=== PATIENT | female | born 1965 | race Caucasian/White ===

== ENCOUNTER 2023-12-17 17:24 | Emergency (ER) | payer OTHER, SELFPAY ==
[2023-12-17 17:27] VITALS: BP 162/90
[2023-12-17 18:05] LABS: % Basophils 0.3 % (0-2); % Eosinophils 1.4 % (0-6); % Immature Granulocytes 0.1 % (0-0.5); % Lymphocytes 38.7 % (20.5-51.1); % Monocytes 7.2 % (1.7-9.3); % Neutrophils 52.3 % (42.2-75.2); Absolute Eosinophils 0.1 10^3/uL (0-0.7); Absolute Lymphocytes 2.7 10^3/uL (1.2-3.4); Absolute Monocytes 0.5 10^3/uL (0.1-0.6); Absolute Neutrophils 3.6 10^3/uL (1.4-6.5); Hematocrit 33.9 % (37.0-47.0); Hemoglobin 11.4 g/dL (12.0-16.0); Mean Corp Hgb Conc. 33.6 g/dL (33.0-37.0); Mean Corpuscular Hgb 31.4 pg (27.0-31.0); Mean Corpuscular Volume 93.4 fL (81.0-99.0); Mean Platelet Volume 8.9 fL (7.4-10.4); Nucleated Red Blood Cells % 0 %; Platelet Count 413 10^3/uL (130-400); Red Blood Cell Count 3.63 10^6/uL (4.20-5.40); Red Cell Dist. Width 13.4 % (11.5-14.5); White Blood Cell Count 6.9 10^3/uL (4.8-10.8)
[2023-12-17 18:13] LABS: ALT (SGPT) 18 U/L (0-35); AST (SGOT) 29 U/L (14-36); Albumin 4.1 g/dl (3.5-5.0); Alkaline Phosphatase 54 U/L (38-126); Blood Urea Nitrogen 10 mg/dl (7-17); Calcium 9.3 mg/dl (8.4-10.2); Carbon Dioxide 29 mmol/L (22-30); Chloride 101 mmol/L (98-107); Glucose 106 mg/dl (70-99); Potassium 3.6 mmol/L (3.5-5.1); Sodium 137 mmol/L (135-145); Total Bilirubin 0.3 mg/dl (0.2-1.3); Total Protein 6.5 g/dl (6.3-8.2); eGFR > 60.00
[2023-12-17 18:24] LABS: NT-proBNP 341 pg/ml; Troponin I < 0.012 ng/ml
[2023-12-17 18:30] VITALS: BMI 22.4
--- NOTE | 2023-12-17 18:32 | ED.GENMED ---
History of Present Illness
General
Chief Complaint: Swelling
Source: patient
Exam Limitations: none
Time Seen by Provider: 12/17/23 18:16
History of Present Illness
History of Present Illness:
58-year-old female with history of hyperlipidemia smoker on hormone replacement therapy presents with onset of swelling in both legs left greater than the right with pain and weakness that she notes to the left leg and left arm. She also noted
chest pain onset earlier today. She denies headache or vision change. No fever. She was at the urgent care 2 nights ago and was evaluated but was not found to have any concern over the swelling. She notes that her legs currently are not very
swollen. No recent travel or surgery. No other complaints at this time
Phy Exam
Physical Exam
Physical Exam:
General: Well-appearing slightly anxious female no acute respiratory distress
HEENT: Normocephalic atraumatic
Heart: Regular rate and rhythm no murmurs
Lungs: Clear no wheeze
Extremities: No cyanosis or edema
Neurologic exam: Alert and oriented no facial asymmetry no drift on exam finger-nose [id number] intact
Vascular: 2+ dorsalis pedis pulse bilateral feet
Scores
Heart Failure Risk
Heart Failure Risk Score: Not Applicable
Course
Orders/Labs/Results
Orders:
Orders
12/17/23 17:26
EKG [Electrocardiogram (*1)] Urgent
Reason for Study: Chest Pain
EKG- Treatment ONCE
12/17/23 17:53
Complete Blood Count/With Diff Urgent
Comprehensive Metabolic Panel Urgent
NT-proBNP Urgent
Troponin I Urgent
12/17/23 18:27
CT Head W/o Iv Contrast Urgent
Comment:
Reason For Exam: left sided weakness
Venous Doppler Lwr Ext Bilat [US Periph Venous LOWER Ext Emerson] Urgent
Comment:
Reason For Exam: swelling, pain
12/17/23 20:29
US Groin (Imaging Only) LT Urgent
Reason For Exam: left groin pain
Abnormal Lab Results
12/17/23
17:53
RBC 3.63 L 10^6/uL
(4.20-5.40)
Hgb 11.4 L g/dL
(12.0-16.0)
Hct 33.9 L %
(37.0-47.0)
MCH 31.4 H pg
(27.0-31.0)
Plt Count 413 H 10^3/uL
(130-400)
Glucose 106 H mg/dl
(70-99)
12/17/23 17:53
12/17/23 17:53
Vital Signs
Initial and Last Documented VS:
Initial Vital Signs
Temp Pulse Resp BP
98.1 F 96 20 162/90
12/17/23 17:27 12/17/23 17:27 12/17/23 17:27 12/17/23 17:27
Last Documented Vital Signs
Temp Pulse Resp BP Pulse Ox
98.1 F 84 12 119/58 99
12/17/23 17:27 12/17/23 19:15 12/17/23 19:00 12/17/23 19:00 12/17/23 19:15
MDM/Problems Addressed
Differential Diagnosis Includes:
Patient with a multiple complaints. She notes leg swelling left greater than right she also notes left sided weakness without a headache. There is no objective weakness on exam but can DVT given hormone replacement therapy for CVA. Will check
electrolytes BNP. Troponin pending as well. CT pending of head as well as ultrasound of both legs
*Critical Care Note
Total Time (30-74mins, 75-104mins- exclusive of procedures): Not Applicable
Update Note
Update Note:
CT head negative for acute finding. Ultrasound bilateral lower extremities negative for DVT she does have a Mcrae's cyst of the right leg and a epidermoid cyst in the left groin. There is no objective neurologic deficit on exam cardiac workup
negative. Reassured patient. Etiology of symptoms somewhat unclear but no signs of concerning pathology at this time. Stable for discharge
ED Attending Note
-
Portions of this chart may have been created with voice recognition software.� Occasional wrong word or��sound alike� substitutions may have occurred due to the inherent limitations of voice recognition software.
Discharge Plan
Departure
Patient Disposition: Home (Routine Discharge)
Date of Disposition: 12/17/23
Time of Disposition: 21:43
Patient with high blood pressure during this ER visit?: No
Discharge Problem:
Mcrae's cyst, Epidermoid cyst of skin of inguinal region
Referrals:
Ally Sharpe MD [Family Provider] -
Activity Restrictions/Additional Instructions:
Please follow-up with your family doctor regarding further evaluation if necessary of the cyst in your groin. You also have a Mcrae's cyst behind the right knee. Workup otherwise is negative. Return if worse otherwise
Interventions
Interventions:
*General Assessment Last Done: 12/17/23 18:31
*ED COVID-19 Vaccine History Last Done: 12/17/23 18:31
ED- Cardiac Assessment Last Done: 12/17/23 18:32
ED- Pulmonary Assessment Last Done: 12/17/23 18:32
ED-Skin Assessment Last Done: 12/17/23 18:32
Discharge Date and Time
Print Language: DIVEHI
[2023-12-17 18:36] VITALS: BP 142/76
[2023-12-17 19:00] VITALS: BP 119/58
[2023-12-17 21:50] VITALS: BP 128/74
== END 2023-12-17 21:50 | disposition home or self-care (01) ==
LOC: EMR 17:24
PROVIDERS: EMERGENCY PHYSICIAN Student in an Organized Health Care Education/Training Program; FAMILY PHYSICIAN Emergency Medicine
DX: M71.21 Synovial cyst of popliteal space [Baker], right knee (principal); L72.9 Follicular cyst of the skin and subcutaneous tissue, unspecified; R53.1 Weakness; Z87.891 Personal history of nicotine dependence; E78.5 Hyperlipidemia, unspecified; Z79.890 Hormone replacement therapy
CPT/HCPCS: 99285; 70450; 76882; 80053; 83880; 84484; 85025; 93005; 93970

== ENCOUNTER → 2025-01-16 08:53 | Outpatient (REF) | payer OTHER, SELFPAY | LOC: RAD 08:53 | PROVIDERS: ATTENDING PHYSICIAN Nurse Practitioner Family | DX: D35.02 Benign neoplasm of left adrenal gland (principal); D35.01 Benign neoplasm of right adrenal gland; Z87.898 Personal history of other specified conditions | CPT/HCPCS: 71260; 74178; Q9967 ==

== ENCOUNTER → 2025-02-06 15:31 | Outpatient (REF) | payer OTHER, SELFPAY | LOC: RAD 15:31 | PROVIDERS: ATTENDING PHYSICIAN Nurse Practitioner Family | DX: R60.0 Localized edema (principal) | CPT/HCPCS: 93970 ==